=== PATIENT | male | born 1945 | race Caucasian/White ===

== ENCOUNTER 2017-04-11 22:07 | Emergency (ER) | payer OTHER, MEDICARE ==
[~2017-04-11] VITALS: Ht 180.3 cm; Wt 131.7 kg
[~2017-04-11 22:07] MED LIST: BENICAR HCT 201 EACH PO; CARDIZEM30 MG PO; COLCRYS0.6 MG PO; GLUCOPHAGE1000 MG PO; INDOCIN SR75 MG PO; JALYN 0.5-0.41 EACH PO; MOTRIN400 MG PO; SYMBICORT60 INHALA1 IH; TOPROL XL200 MG PO
[2017-04-11 23:57] VITALS: BP 136/93
== END 2017-04-11 23:59 | disposition home or self-care (01) ==
LOC: EXP 22:07 → EME 22:07 → EXP 23:59
PROC: 0HQMXZZ Repair Right Foot Skin, External Approach (ICD-10-PCS; principal; 2017-04-11)
DX: S91.311A Laceration without foreign body, right foot, initial encounter (principal); I86.8 Varicose veins of other specified sites; X58.XXXA Exposure to other specified factors, initial encounter; Y93.E1 Activity, personal bathing and showering; I10 Essential (primary) hypertension; E11.9 Type 2 diabetes mellitus without complications; Z79.84 Long term (current) use of oral hypoglycemic drugs; Z87.442 Personal history of urinary calculi
CPT/HCPCS: 99281; 99284

== ENCOUNTER 2017-11-13 10:00 | Inpatient (IN) | payer OTHER, MEDICARE ==
[~2017-11-13] VITALS: Ht 180.3 cm; Wt 125.4 kg
[~2017-11-13 10:00] MED LIST changes: +ADVIL,NUPRIN,M200 MG PO; -MOTRIN400 MG PO
[2017-11-13 10:48] LABS: HEMATOCRIT 36.3 % (38.0-50.0); HEMOGLOBIN 12.2 G/DL (12.5-16.6); MCH 29.9 PG (29.0-34.0); MCHC 33.6 G/DL (30.0-36.0); PLATELET COUNT 243 K/uL (156-360); RBC DIS.WIDTH-CV 15.1 % (11.8-14.6); RBC DIS.WIDTH-SD 48.7 % (39-53); RED BLOOD COUNT 4.08 M/uL (4.00-5.50); WHITE BLOOD COUNT 6.4 K/uL (4.1-10.2)
[2017-11-13 11:06] LABS: CHLORIDE 103 mEq/L (99-109); POTASSIUM 4.3 mEq/L (3.7-5.4); SODIUM 139 mEq/L (136-147)
[2017-11-13 11:08] LABS: GLUCOSE 183 mg/dL (70-99)
[2017-11-13 11:11] LABS: CREATININE 1.6 mg/dL (0.6-1.3); GFR ESTIMATE (CALCULATED) 46 mL/min/ (58.99-99999)
[2017-11-13 11:12] LABS: UREA NITROGEN (BUN) 30 mg/dL (9-23)
[2017-11-13] MEDS ORDERED: HYDROCODON-ACE1 EAC9 PO (15:03)
[2017-11-13] MEDS ORDERED: LEVOFLOXACIN750 MG PO (15:04)
[2017-11-13] MEDS ORDERED: LANTUS 3 M100 UNITS1 SC (15:05)
[2017-11-13] MEDS ORDERED: OLMESARTAN-HCT1 EACH PO (15:06)
[2017-11-13] MEDS ORDERED: METOPROLOL SUC200 MG PO (15:07)
[2017-11-13 16:28] LABS: TROP-I INTERPRETATION NEGATIVE; TROPONIN-I 0.01 ng/mL (0.0-0.30)
[2017-11-13 16:52] LABS: HDL CHOLESTEROL 32 MG/DL (Desirable>=40); LDL CHOLESTEROL 98 mg/dL (Desirable<100); NON-HDL CHOLESTEROL 167 mg/dL (Desirable<160); TOTAL CHOLESTEROL 199 mg/dL (Desirable<200); TRIGLYCERIDES 347 MG/DL (Normal: <150)
[2017-11-13 17:07] LABS: THYROTROPIN (TSH) 1.5 MIU/L (0.4-5.5)
[2017-11-13 17:11] VITALS: BP 125/73
[2017-11-13 20:00] VITALS: BP 105/50
[2017-11-13 21:08] LABS: TROP-I INTERPRETATION NEGATIVE; TROPONIN-I < 0.01 ng/mL (0.0-0.30)
[2017-11-14] VITALS: BP 103/51
[2017-11-14 03:04] LABS: CHLORIDE 104 mEq/L (99-109); POTASSIUM 4.2 mEq/L (3.7-5.4); SODIUM 136 mEq/L (136-147)
[2017-11-14 03:06] LABS: GLUCOSE 177 mg/dL (70-99)
[2017-11-14 03:10] LABS: CREATININE 1.4 mg/dL (0.6-1.3); GFR ESTIMATE (CALCULATED) 53 mL/min/ (58.99-99999)
[2017-11-14 03:11] LABS: UREA NITROGEN (BUN) 29 mg/dL (9-23)
[2017-11-14 03:23] LABS: TROP-I INTERPRETATION NEGATIVE; TROPONIN-I < 0.01 ng/mL (0.0-0.30)
[2017-11-14 07:06] VITALS: BP 99/54
[2017-11-14 10:41] LABS: HEMOGLOBIN A1c (GLYCOHEMOGLOB) 9.2 % (Below 5.7)
[2017-11-14 11:15] VITALS: BP 114/69
[2017-11-14 15:13] VITALS: BP 116/69
[2017-11-14] MEDS ORDERED: ATORVASTATIN CA40 MG PO (15:32)
[2017-11-14] MEDS ORDERED: DURLAZA162.5 MG PO (15:36)
== END 2017-11-14 16:30 | disposition home or self-care (01) | DRG 65 ==
LOC: EME 10:00 → 5SOUTH 14:02 → EDOF 14:02 → ENRESERV 14:03 → 5SOUTH 16:55
PROVIDERS: Hospitalist; Nurse Practitioner Family
DX: I63.8 Other cerebral infarction (principal); N17.9 Acute kidney failure, unspecified; E11.22 Type 2 diabetes mellitus with diabetic chronic kidney disease; E66.01 Morbid (severe) obesity due to excess calories; L02.31 Cutaneous abscess of buttock; E78.5 Hyperlipidemia, unspecified; N40.0 Benign prostatic hyperplasia without lower urinary tract symptoms; R26.81 Unsteadiness on feet; N18.9 Chronic kidney disease, unspecified; I12.9 Hypertensive chronic kidney disease with stage 1 through stage 4 chronic kidney disease, or unspecified chronic kidney disease; M19.90 Unspecified osteoarthritis, unspecified site; Z68.38 Body mass index [BMI] 38.0-38.9, adult; Z79.4 Long term (current) use of insulin
CPT/HCPCS: 70140; 70450; 70551; 71046; 80048; 80061; 82948; 83036; 84443; 84484; 85027; 93005; 93306; 93880; J1644; J7030